=== PATIENT | female | born 1940 | race Two or more races ===

== ENCOUNTER 2019-05-25 10:20 | Outpatient (CLI) | payer OTHER | END 2019-05-25 10:24 | disposition home or self-care (01) | LOC: SONOGRAMA 10:20 | DX: E04.1 Nontoxic single thyroid nodule (principal) ==

== ENCOUNTER 2021-02-06 08:57 | Outpatient (CLI) | payer OTHER | END 2021-02-06 09:02 | disposition home or self-care (01) | LOC: SONOGRAMA 08:57 | PROVIDERS: ATTEND Pathology Anatomic Pathology & Clinical Pathology | DX: E04.1 Nontoxic single thyroid nodule (principal) ==

== ENCOUNTER 2021-08-25 08:28 | Outpatient (CLI) | payer OTHER | END 2021-08-25 08:35 | disposition home or self-care (01) | LOC: SONOGRAMA 08:28 | PROVIDERS: ATTEND Pathology Anatomic Pathology & Clinical Pathology | DX: D34 Benign neoplasm of thyroid gland (principal); E07.89 Other specified disorders of thyroid ==